=== PATIENT | female | born 2000 | race Caucasian/White ===

== ENCOUNTER 2019-05-31 18:10 | Emergency (ER) | payer OTHER ==
[2019-05-31 18:57] VITALS: BP 125/65
[2019-05-31] MEDS ORDERED: predniSONE TAB* 20 MG PO ONE (19:22)
--- NOTE | 2019-05-31 19:22 | UC ---
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 itchiness redness is traveling down to elbow. axilla is improved -dad gets bad bee sting reactions -azam SOB or swelling in lips/tongue/throat or CP -denies chance of pregancny. on OCP. - History of Current Complaint Chief Complaint: UCSkin Time Seen by Provider: 05/31/19 19:08 Stated Complaint: L ARM BEE STINK Hx Last Menstrual Period: 05/01/19 Pain Intensity: 0 - Allergy/Home Medications Allergies/Adverse Reactions: Allergies Allergy/AdvReac Type Severity Reaction Status Date / Time No Known Allergies Allergy Verified 05/31/19 18:56 Home Medications: Home Medications Control Pill 1 tab BEDTIME 05/31/19 [History Confirmed 05/31/19] PMH/Surg Hx/FS Hx/Imm Hx Previously Healthy: Yes - Surgical History Surgical History: None - Family History Known Family History: Positive: Other - Dad w/ significant bee sting reactions - Social History Alcohol Use: Occasionally Substance Use Type: None Smoking Status (MU): Never Smoked Tobacco Review of Systems All Other Systems Reviewed And Are Negative: Yes Constitutional: Positive: Negative. Negative: Fever, Chills, Fatigue Skin: Positive: Rash Eyes: Positive: Negative ENT: Positive: Negative. Negative: Sore Throat Respiratory: Positive: Negative. Negative: Shortness Of Breath, Cough Cardiovascular: Positive: Negative Gastrointestinal: Positive: Negative Genitourinary: Positive: Negative Motor: Positive: Negative Neurovascular: Positive: Negative Musculoskeletal: Positive: Negative Neurological: Positive: Negative Psychological: Positive: Negative Is Patient Immunocompromised?: No Physical Exam Triage Information Reviewed: Yes Appearance: Well-Appearing, No Pain Distress, Well-Nourished - very pleaant, reliable. college student Vital Signs: Initial Vital Signs Temp 97.8 F 05/31/19 18:54 Pulse 61 05/31/19 18:54 Resp 16 05/31/19 18:54 BP 125/65 05/31/19 18:54 Pulse Ox 100 05/31/19 18:54 Vital Signs Reviewed: Yes Eye Exam: Normal ENT: Positive: Pharynx normal, TMs normal, Uvula midline - no swelling of lips, tongue or uvula/throat, Other Dental Exam: Normal Neck exam: Normal Neck: Positive: Supple, Nontender, No Lymphadenopathy Respiratory Exam: Normal Respiratory: Positive: Lungs clear, Normal breath sounds, No respiratory distress, No accessory muscle use Cardiovascular Exam: Normal Cardiovascular: Positive: RRR, No Murmur Abdominal Exam: Normal Musculoskeletal Exam: Normal Neurological Exam: Normal Psychological Exam: Normal Skin: Positive: Rashes - left axilla w/ minimal erythema. left upper flexor arm w/ faint pink slightly elevated coalesced slightly wamr itchy plaque. no d/c. no streaks, no dc. FROM. CR brisk. Course/Dx - Course Course Of Treatment: local reaction of insect bite. no e/o infection. offered abx but she prefers to wait and follow up w/ f/c/ or wrosenung redness. -very good/reliable historian. -can use OTC HC cream - Differential Diagnoses - Skin Complaint Differential Diagnoses: Angioedema, Cellulitis, Other - insect bite - Diagnoses Provider Diagnosis: Insect bite Discharge ED - Sign-Out/Discharge Documenting (check all that apply): Patient Departure All imaging exams completed and their final reports reviewed: No Studies - Discharge Plan Condition: Stable Disposition: HOME Prescriptions: methylPREDNISolone [Medrol Dosepak 4 MG*] 4 mg PO DAILY #1 alber Patient Education Materials: Insect Bite or Sting (ED) Referrals: No Primary Care Phys,NOPCP [Primary Care Provider] - Additional Instructions: -We talked about the potential side effects of prednisone including but not limited too increased energy/decreased sleep, stomach upset, irritability, hunger, elevated blood sugars and blood pressures, problems with your adrenal glands and cut off of the blood supply going to your hip. The latter symptoms are more typical of chcf or frequent use of steroids. -You have been given 40mgs prednisone here and 10mgs of claritin (anti-histamine ) -You should take 10-14 days of OTC loratadine 10mgs or cetirizine 10mgs daily for 10-14 days or until symptoms resolve -You are given a 6 day low dose course of prednisone to start tomorrow. -We talked about the fact that there is no evidence for a bacterial infection at this time but just a local reaction w/ gravity taking affect down your arm. If you develop fevers/chills/sweats, aselling in your tongue/throat or shortness of breath you should be seen in the ER. -Please follow up at [facility] on Monday or Monday. - Billing Disposition and Condition Condition: STABLE Disposition: Home
[2019-05-31] MEDS ORDERED: LoraTADine TAB(NF) 10 MG TAB (AUTOSUB to CETIRIZINE) PO ONE (19:23)
== END 2019-05-31 19:37 | disposition home or self-care (01) ==
LOC: UCCORT 18:10
DX: S40.862A Insect bite (nonvenomous) of left upper arm, initial encounter (principal); W57.XXXA Bitten or stung by nonvenomous insect and other nonvenomous arthropods, initial encounter; Y92.9 Unspecified place or not applicable
CPT/HCPCS: 99212; A9270-GY; G0463; J7512